=== PATIENT | male | born 1990 | race American Indian/Alaskan Native ===

== ENCOUNTER 2024-12-07 02:30 | Emergency (ER) | payer SELFPAY ==
[2024-12-07] MEDS: Amoxicillin/Clavulanate K 875-125 MG Tab PO ONE (03:08)
== END 2024-12-07 04:03 | disposition home or self-care (01) ==
LOC: MW.ED 02:30
DX: J02.0 Streptococcal pharyngitis (principal); Z75.3 Unavailability and inaccessibility of health-care facilities
CPT/HCPCS: 87651; 96372; 99284; A9270; J1100; 99283